=== PATIENT | female | born 1990 | race Caucasian/White ===

== ENCOUNTER 2021-05-25 09:03 | Emergency (ER) | payer BC ==
[2021-05-25 09:11] VITALS: BP 129/77; PULSE 71; TEMP 97.2; BMI 25.4
[2021-05-25] MEDS ORDERED: ACETAMINOPHEN 500 MG TABLET (FP) PO ONE (09:53)
[2021-05-25] MEDS ORDERED: ACETAMINOPHEN 500 MG TABLET (FP) ONE (10:19)
== END 2021-05-25 11:05 | disposition home or self-care (01) ==
LOC: JER 09:03
DX: N64.4 Mastodynia (principal)
CPT/HCPCS: 84703; 99283-25